=== PATIENT | female | born 1990 | race Two or more races ===

== ENCOUNTER 2025-02-06 06:00 | Day surgery (SDC) | payer OTHER ==
[2025-01-31 09:03] LABS: URINE APPEARANCE Clear; URINE BILIRRUBIN Negative (NEGATIVE); URINE BLOOD Negative; URINE COLOR Yellow; URINE GLUCOSE Negative (NEGATIVE); URINE KETONE Negative (NEGATIVE); URINE LEUKOCYTE Negative; URINE NITRATE Negative; URINE PROTEIN Negative (NEGATIVE); URINE UROBILINOGEN 0.2 E.U./dl
[2025-01-31 09:20] LABS: URINE BACTERIA 2.3 uL (0.0-1933); URINE CAST 0.14 uL (0.0-1.40); URINE EPITHELIAL CELLS 0.4 uL (0.0-38.8); URINE RBC 0.7 uL (0.0-20.8); URINE WBC 0.4 uL (0.0-23.2)
[2025-01-31 09:37] LABS: INR 0.99
[2025-01-31 09:44] LABS: ALT/SGPT 11.0 U/L (12-78); AST/SGOT 17.0 U/L (15-37); BILIRUBIN TOTAL 0.76 mg/dL (0.3-1.2); BUN CREA RATIO 15.0 (7.0-25.0); CREATININE SERUM 0.84 mg/dL (0.55-1.02); GFR 78.08; GLOBULINA 3.7 G/DL (2.4-3.5); GLUCOSE FASTING 79.0 mg/dL (65-100); OSMOLALITY SERUM 284.0 MOSM/KG (275-295); TSH 1.62 uIU/mL (0.358-3.74)
[2025-01-31 10:35] LABS: BASO % 1.3 % (0.1-1.2); EOS # 0.19 (0.04-0.54); EOS % 4.1 % (0.7-7.0); LYMPH # 2.12 (1.18-3.74); LYMPH % 45.4 % (19.3-53.1); MEAN PLATELET VOLUME 10.00 fl (9.4-12.4); MONO # 0.28 (0.24-0.82); MONO % 6.0 % (4.7-12.5); NEUT # 2.01 (1.56-6.13); NEUT % 43.0 % (34.0-71.1); RED CELL DISTRIBUTION WIDTH 12.3 % (11.6-14.4)
[2025-02-06] MEDS ORDERED: POVIDONE-IODINE 118 ML BOTT TOP ONE (06:50)
[2025-02-06] MEDS ORDERED: CEFOXITIN SODIUM 2,000 MG VIAL IV ONE (06:51)
[2025-02-06] MEDS ORDERED: AVIDOXY100 MG PO (08:22)
[2025-02-06] MEDS ORDERED: NAPR500T14 PO (08:22)
[2025-02-06] MEDS ORDERED: PROMETHAZINE HCL 50 MG/ML AMPUL IM ONE (08:30)
[2025-02-06] MEDS ORDERED: MORPHINE SULFATE 4 MG/ML VIAL IV PRN (08:30)
[2025-02-06] MEDS ORDERED: MORPHINE SULFATE 4 MG/ML VIAL IV ONE (11:20)
== END 2025-02-06 14:30 | disposition home or self-care (01) ==
LOC: CIR.AMB 06:00
PROVIDERS: ATTEND Obstetrics & Gynecology
DX: D25.0 Submucous leiomyoma of uterus (principal); N84.0 Polyp of corpus uteri; N93.8 Other specified abnormal uterine and vaginal bleeding